=== PATIENT | female | born 1955 | race Caucasian/White ===

== ENCOUNTER → 2017-04-08 | Outpatient (CLI) | payer BC | LOC: MC.RAD 13:20 | DX: Z12.31 Encounter for screening mammogram for malignant neoplasm of breast (principal) ==

== ENCOUNTER → 2018-05-14 | Outpatient (CLI) | payer BC | LOC: MC.RAD 05-13 11:40 | DX: Z12.31 Encounter for screening mammogram for malignant neoplasm of breast (principal) ==

== ENCOUNTER 2019-07-03 08:23 | Day surgery (SDC) | payer BC ==
[~2019-07-03] VITALS: Ht 154.9 cm; Wt 70.9 kg
[2019-07-03 09:10] VITALS: BP 122/82; PULSE 72; TEMP 97.7
[2019-07-03 10:05] VITALS: BP 109/67; PULSE 69; TEMP 98.3
[2019-07-03 10:20] VITALS: BP 115/66; PULSE 65
[2019-07-03 10:35] VITALS: BP 100/70; PULSE 71
--- NOTE | 2019-07-03 10:40 | NUR ---
Pt returned via cart to bay [facility]. Ambulated with SBA to recliner in bay. Tolerated crackers and juice. VSS-see flowsheet. Dr Gottlieb in to visit with pt and spouse post procedure. IV removed and pressure dressing applied to site. Discharge teaching completed, pt and spouse verbalized understanding. Taken via wheelchair to private vehicle for dc home with spouse driving.
== END 2019-07-03 10:40 | disposition home or self-care (01) ==
LOC: SDCO 08:23
DX: Z12.11 Encounter for screening for malignant neoplasm of colon (principal); E78.5 Hyperlipidemia, unspecified; M85.80 Other specified disorders of bone density and structure, unspecified site
CPT/HCPCS: J2250; J3010; J7030

== ENCOUNTER → 2019-07-09 | Outpatient (CLI) | payer BC | LOC: MC.RAD 10:52 | DX: Z12.31 Encounter for screening mammogram for malignant neoplasm of breast (principal) ==